=== PATIENT | male | born 1985 | race Caucasian/White ===

== ENCOUNTER 2022-03-11 21:05 | Emergency (ER) | payer MEDICAID ==
[~2022-03-11] VITALS: Ht 177.8 cm; Wt 113.6 kg
[2022-03-11 21:33] VITALS: BP 134/79
== END 2022-03-12 04:15 | disposition left against medical advice (07) ==
LOC: ER 21:09
DX: L02.91 Cutaneous abscess, unspecified (principal); Z53.21 Procedure and treatment not carried out due to patient leaving prior to being seen by health care provider

== ENCOUNTER 2022-03-14 15:41 | Emergency (ER) | payer MEDICAID ==
[~2022-03-14] VITALS: Ht 177.8 cm; Wt 113.6 kg
[2022-03-14 18:32] LABS: ALANINE AMINOTRANSFERASE 54 U/L (12-78); ALBUMIN 3.2 G/DL (3.4-5.0); ALBUMIN/GLOBULIN RATIO 0.9 (1.1-1.5); ALKALINE PHOSPHATASE 114 IU/L (46-116); ANION GAP 4 (8-16); ASPARTATE AMINO TRANSFERASE 38 U/L (10-37); BILIRUBIN,TOTAL 0.3 MG/DL (0.1-1.0); BLOOD UREA NITROGEN 13 MG/DL (7-18); BUN/CREATININE RATIO 14.6 (5.4-32.0); CALCIUM 8.8 MG/DL (8.5-10.1); CHLORIDE 103 MMOL/L (99-107); CREATININE 0.89 MG/DL (0.60-1.10); GLUCOSE 96 MG/DL (70-104); POTASSIUM 4.6 MMOL/L (3.5-5.1); SODIUM 136 MMOL/L (135-145); TOTAL CARBON DIOXIDE 28.8 MMOL/L (24-32); TOTAL PROTEIN 6.8 G/DL (6.4-8.2); eGFR > 90 ML/MIN
[2022-03-14 18:33] LABS: BASOPHILS % (AUTO) 0.3 % (0-1); EOSINOPHILS % (AUTO) 0.1 % (0-6); HEMATOCRIT 42.3 % (42.0-52.0); HEMOGLOBIN 14.3 g/dl (14.0-17.9); LYMPHOCYTES # (AUTO) 1.4 X10'3 (1.1-4.8); LYMPHOCYTES % (AUTO) 17.2 % (21-51); MEAN CORPUSCULAR HEMOGLOBIN 29.3 PG (27.0-31.0); MEAN CORPUSCULAR HGB CONC 33.7 g/dL (33.0-36.5); MEAN CORPUSCULAR VOLUME 86.8 FL (78-98); MEAN PLATELET VOLUME 7.1 FL (7.4-10.4); MONOCYTES % (AUTO) 12.4 % (2-12); NEUTROPHILS # (AUTO) 5.6 X10'3 (1.8-7.7); PLATELET COUNT 281 X10'3 (140-440); RED BLOOD COUNT 4.88 X10'6 (4.70-6.10); RED CELL DISTRIBUTION WIDTH 13.2 % (11.5-14.5)
[2022-03-14] MEDS ORDERED: iohexol 300mg/ml 100ml inj. ONE (18:37)
--- NOTE | 2022-03-14 19:00 | NUR ---
I agree with Joanne Frost, Amrita assessment.
[2022-03-14] MEDS ORDERED: DOXYCYCLINE 100MG CAPSULE PO STA (19:51)
[2022-03-14] MEDS ORDERED: cephalexin 250mg capsule PO ONE (19:55)
[2022-03-14] MEDS ORDERED: CefTRIAXone/D5W-Rocephin 1gm 50 ML IV ONE (20:20)
[2022-03-14] MEDS ORDERED: CEPH250T PO (21:03)
[2022-03-14] MEDS ORDERED: DOXY100C77 PO (21:03)
[2022-03-14 21:46] VITALS: BP 125/89
== END 2022-03-14 21:48 | disposition home or self-care (01) ==
LOC: ER 15:41
DX: L03.114 Cellulitis of left upper limb (principal); Z79.899 Other long term (current) drug therapy
CPT/HCPCS: 36415; 73201; 80053; 85025; 96365; 99285; J0696; J3490; Q9967; 99284

== ENCOUNTER 2024-08-08 03:25 | Emergency (ER) | payer MEDICAID ==
[~2024-08-08] VITALS: Ht 177.8 cm; Wt 100.0 kg
[2024-08-08 05:20] LABS: BASOPHILS % (AUTO) 0.1 % (0-1); EOSINOPHILS % (AUTO) 0.2 % (0-6); HEMATOCRIT 44.2 % (42.0-52.0); HEMOGLOBIN 14.9 g/dl (14.0-17.9); LYMPHOCYTES % (AUTO) 10.1 % (21-51); MEAN CORPUSCULAR HEMOGLOBIN 29.2 PG (27.0-31.0); MEAN CORPUSCULAR HGB CONC 33.8 g/dL (33.0-36.5); MEAN CORPUSCULAR VOLUME 86.4 FL (78-98); MEAN PLATELET VOLUME 6.9 FL (7.4-10.4); MONOCYTES # (AUTO) 0.7 X10'3 (0-0.9); MONOCYTES % (AUTO) 7.1 % (2-12); NEUTROPHILS # (AUTO) 7.8 X10'3 (1.8-7.7); NEUTROPHILS % (AUTO) 82.5 % (42-75); PLATELET COUNT 248 X10'3 (140-440); RED BLOOD COUNT 5.11 X10'6 (4.70-6.10); RED CELL DISTRIBUTION WIDTH 13.9 % (11.5-14.5); WHITE BLOOD COUNT 9.5 X10'3 (4.5-11.0)
[2024-08-08 05:32] LABS: ALANINE AMINOTRANSFERASE 36 U/L (12-78); ALBUMIN 3.5 G/DL (3.4-5.0); ALBUMIN/GLOBULIN RATIO 1.1 (1.1-1.5); ALKALINE PHOSPHATASE 93 IU/L (46-116); ANION GAP 2 (8-16); ASPARTATE AMINO TRANSFERASE 24 U/L (10-37); BILIRUBIN,TOTAL 0.9 MG/DL (0.1-1.0); BLOOD UREA NITROGEN 14 MG/DL (7-18); BUN/CREATININE RATIO 14.6 (10.0-20.0); CALCIUM 8.9 MG/DL (8.5-10.1); CHLORIDE 101 MMOL/L (99-107); CREATININE 0.96 MG/DL (0.60-1.10); GLUCOSE 101 MG/DL (70-104); POTASSIUM 3.7 MMOL/L (3.5-5.1); SODIUM 137 MMOL/L (135-145); TOTAL CARBON DIOXIDE 33.9 MMOL/L (24-32); TOTAL PROTEIN 6.8 G/DL (6.4-8.2); eCRCL 108 ML/MIN; eGFR 88 ML/MIN
--- NOTE | 2024-08-08 05:44 | RADIOLOGY REPORT ---
US US TESTIC/W/DUPLEX HISTORY: scrotal swelling COMPARISON: None FINDINGS: Transverse and longitudinal grayscale and Doppler sonographic images were obtained of the s crotum/testicles. Right testicle measures 3.3 x 2.2 x 2.1 cm. Left testicle measures 3.1 x 2.3 x 2.1 cm. No evidence o f intratesticular mass or abnormal vascularity. No discrete hydrocele. Epididymi appear unremarkable . There is diffuse scrotal wall thickening. IMPRESSION: 1. Unremarkable examination of the testicles. 2. Diffuse scrotal wall thickening and edema.
--- NOTE | 2024-08-08 05:56 | Physician Documentation ---
History of Present Illness ~ Chief Complaint: Edema Stated Complaint: SEE CHIEF COMPLAINT Time Seen by MD: 03:29 Primary Medical Doctor: Ariana lennon Mode of Arrival: EMS HPI 39 year old male reports several days of scrotal swelling and pain. Has history of diabetes. Denies urinary symptoms. Medication Reconciliation Allergies: Coded Allergies: No Known Allergies (Unverified , 03/14/22) Past Medical History Past Medical History: No Pertinent History Past Surgical History: noncontributory Drug Use: other Review of Systems All Other Systems at this time: Reviewed and Negative Physical Exam Vital Signs: RN Vital Signs have been reviewed: Yes, Temperature: 98.2, Source: Oral, Heart Rate: 74, Respiratory Rate: 18, BP: 136/80, Pulse Oximetry: 99, Weight: 100.000 Oxygen Flow Rate: 0 General Appearance HEENT: PERRL, moist oral mucosa, EOMI Pulmonary: No respiratory distress : scrotum +edema and erythema, tender, without areas of gangrene or crepitus MSK: no deformity Skin: w/d/i, no rash Neuro: alert, nonfocal Psych: normal affect Progress Results/Orders Results/Orders Vital Signs 08/08/24 08/08/24 08/08/24 04:20 04:54 05:49 Temp 98.2 Pulse 81 74 Resp 18 16 18 B/P (MAP) 114/68 136/80 (98) Pulse Ox 99 99 O2 Flow Rate 0 Laboratory Tests Test 08/08/24 05:00 08/08/24 08:21 White Blood Count 9.5 Red Blood Count 5.11 Hemoglobin 14.9 Hematocrit 44.2 Mean Corpuscular Volume 86.4 Mean Corpuscular Hemoglobin 29.2 Mean Corpuscular Hemoglobin Concent 33.8 Red Cell Distribution Width 13.9 Platelet Count 248 Mean Platelet Volume 6.9 L Neutrophils (%) (Auto) 82.5 H Lymphocytes (%) (Auto) 10.1 L Monocytes (%) (Auto) 7.1 Eosinophils (%) (Auto) 0.2 Basophils (%) (Auto) 0.1 Neutrophils # (Auto) 7.8 H Lymphocytes # (Auto) 1.0 L Monocytes # (Auto) 0.7 Eosinophils # (Auto) 0.0 Basophils # (Auto) 0.0 CBC Comment Sodium Level 137 Potassium Level 3.7 Chloride Level 101 Carbon Dioxide Level 33.9 H Anion Gap 2 L Blood Urea Nitrogen 14 Creatinine 0.96 Estimated GFR/1.73 m2 88 BUN/Creatinine Ratio 14.6 Glucose Level 101 Calcium Level 8.9 Total Bilirubin 0.9 Aspartate Amino Transf (AST/SGOT) 24 Alanine Aminotransferase (ALT/SGPT) 36 Alkaline Phosphatase 93 Pro-B-Type Natriuretic Peptide < 30 Total Protein 6.8 Albumin 3.5 Globulin 3.3 Albumin/Globulin Ratio 1.1 Chemistry Comments Urine Specimen Description Urinal Urine Color Yellow Urine Clarity Clear Urine pH 6.0 Urine Specific [place] 1.025 Urine Protein Negative Urine Glucose (UA) 100 H Urine Ketones Negative Urine Occult Blood Negative Urine Nitrite Negative Urine Bilirubin Negative Urine Urobilinogen 0.2 Urine Leukocyte Esterase Negative Urine Culture Indicated Not ind Volume Urine Centrifuged 10 ml Urine Comment Medical Decision Making Findings 39 year old male with scrotal edema. Labs pending, will sign out to oncoming ER physician. Differential Dx:Considerations: Include: Cellulitis, Renal faliure Additional Comment Ddx = epidydimitis, orchitis, hydrocele, lymphedema Departure Disposition: HOME / SELF CARE / HOMELESS Impression: Primary Impression: Cellulitis Qualified Codes: L03.818 - Cellulitis of other sites Additional Instructions: Please start taking the antibiotics we prescribed. Return for fever or worsening symptoms. Follow up with your primary care physician for a recheck of the affected area in 1 week Referrals: NO PRIMARY CARE PROVIDER (PCP) Prescriptions Cephalexin (Cephalexin) 500 Mg Capsule 1 CAP PO Q6H for 7 Days, #28 CAP Prov: MACRINA MARS MD 08/08/24 Signature Scribe Signature: . Attestation: . RODRÍGUEZ BROWN MD August 08, 2024 05:56 MACRINA MARS MD August 08, 2024 09:52
[2024-08-08 06:32] LABS: PRO BRAIN NATRIURETIC PEPTIDE < 30 PG/ML (0-125)
[2024-08-08 09:03] LABS: BILIRUBIN,URINE NEGATIVE (Neg); CLARITY,URINE CLEAR (Clear); COLOR,URINE YELLOW (Yellow); GLUCOSE, URINE 100 mg/dl (Neg); KETONES,URINE NEGATIVE (Neg); LEUKOCYTE ESTERASE ,URINE NEGATIVE (Neg); NITRITES, URINE NEGATIVE (Neg); OCCULT BLOOD,URINE NEGATIVE (Neg); PROTEIN,URINE NEGATIVE (Neg); UROBILINOGEN,URINE 0.2 E.U/dL (0.2-1.0)
[2024-08-08 09:16] LABS: UA COLLECTION TYPE URINAL
[2024-08-08] MEDS ORDERED: CEPH500C81 PO (09:50)
[2024-08-08 10:05] VITALS: BP 109/70; PULSE 88; RESP 14; TEMP 98.2; O2SAT 97
[2024-08-11 05:13] LABS: CHLAMYDIA TRACHOMATIS, NAA Negative (Negative)
== END 2024-08-08 10:07 | disposition home or self-care (01) ==
LOC: ER 03:26
DX: N49.2 Inflammatory disorders of scrotum (principal); E11.9 Type 2 diabetes mellitus without complications
CPT/HCPCS: 36415; 76870; 80053; 81003; 83880; 85025; 87491; 93976; 99284